=== PATIENT | male | born 1955 | race Caucasian/White ===

== ENCOUNTER 2021-01-12 21:09 | Emergency (ER) | payer OTHER ==
[~2021-01-12 21:09] MED LIST: BACTROBAN NASAL1 GM TOP; METFORMIN HCL500 MG PO; MICRONASE5 MG PO; NORCO 5-325 TA1 EACH PO; ONDANSETRON HCL4 MG PO; PROTONIX 40MG T40 MG PO; TOPROL XL 25MG25 MG PO; VOLTAREN100 GM TOP; ZESTRIL2.5 MG PO
[2021-01-13] MEDS ORDERED: IBUPROFEN800 MG PO (00:39)
[2021-01-13] MEDS ORDERED: PERCOCET 5-3251 EACH PO (00:39)
== END 2021-01-13 01:00 | disposition home or self-care (01) ==
LOC: FER 21:09
DX: S83.91XA Sprain of unspecified site of right knee, initial encounter (principal); E11.9 Type 2 diabetes mellitus without complications; I10 Essential (primary) hypertension; K21.9 Gastro-esophageal reflux disease without esophagitis; Z79.84 Long term (current) use of oral hypoglycemic drugs; Z79.899 Other long term (current) drug therapy; W19.XXXA Unspecified fall, initial encounter; Y92.009 Unspecified place in unspecified non-institutional (private) residence as the place of occurrence of the external cause
CPT/HCPCS: 73564; 96372; J1885

== ENCOUNTER 2021-09-02 08:38 | Emergency (ER) | payer OTHER ==
[~2021-09-02 08:38] MED LIST changes: +IBUPROFEN800 MG PO; +PERCOCET 5-3251 EACH PO
[2021-09-02 10:25] LABS: EOSINOPHIL 1.7 % (0-5); HCT 44.6 % (42.0-52.0); LYMPHOCYTE 17.4 % (15-48); MCH 29.5 pg (25.0-31.0); MCHC 33.6 g/dL (32.0-36.0); MCV 87.6 fL (78.0-100.0); MONOCYTE 10.6 % (0-12); MPV 11.3 fL (6.0-9.5); NRBC 0; PLT 179 K/uL (150-400); RBC 5.09 M/uL (4.70-6.00); RDW 12.4 % (11.5-14.0); WBC 8.9 K/uL (4.0-10.5)
[2021-09-02 10:39] LABS: INR 0.98 (0.9-1.2); PROTHROMBIN TIME 12.4 SECONDS (11.8-13.4); PTT 30.9 SECONDS (24.4-34.7)
[2021-09-02 10:49] LABS: BILIRUBIN - TOTAL 0.3 mg/dL (0.2-1.0); BUN/CREAT RATIO (CALC) 14.8 RATIO; CREATININE 0.81 mg/dL (0.67-1.17); GLOBULIN (CALCULATION) 4.5 g/dL; POTASSIUM 4.3 mmol/L (3.5-5.1); TOTAL PROTEIN 8.5 g/dL (6.4-8.2)
[2021-09-02 11:53] LABS: CORONAVIRUS 2019 SARS-COV-2 NEGATIVE (NEGATIVE); INFLUENZA A NAA NEGATIVE (NEGATIVE)
[2021-09-02] MEDS ORDERED: NEURONTIN100 MG PO (14:11)
== END 2021-09-02 14:40 | disposition home or self-care (01) ==
LOC: FER 08:38
PROVIDERS: Emergency Medicine
DX: I65.21 Occlusion and stenosis of right carotid artery (principal); I16.0 Hypertensive urgency; M54.12 Radiculopathy, cervical region; I10 Essential (primary) hypertension; E11.9 Type 2 diabetes mellitus without complications; Z79.84 Long term (current) use of oral hypoglycemic drugs; Z79.899 Other long term (current) drug therapy; Z20.822 Contact with and (suspected) exposure to COVID-19
CPT/HCPCS: 36415; 70450; 71045; 80053; 80061; 82550; 84484; 85025; 85610; 85730; 93005; J3490; Q9967; U0002

== ENCOUNTER 2021-09-21 14:15 | Emergency (ER) | payer OTHER ==
[~2021-09-21 14:15] MED LIST changes: +NEURONTIN100 MG PO
[2021-09-21 14:55] LABS: BASOPHIL 1.4 % (0-2); HCT 43.3 % (42.0-52.0); HGB 14.8 g/dl (13.2-18.0); MCH 29.3 pg (25.0-31.0); MCHC 34.2 g/dL (32.0-36.0); MCV 85.7 fL (78.0-100.0); MONOCYTE 8.7 % (0-12); MPV 11.4 fL (6.0-9.5); NEUTROPHIL 57.8 % (41-80); NRBC 0; PLT 186 K/uL (150-400); RBC 5.05 M/uL (4.70-6.00); RDW 12.4 % (11.5-14.0); WBC 6.9 K/uL (4.0-10.5)
[2021-09-21 15:07] LABS: BILIRUBIN NEGATIVE (NEGATIVE); BLOOD NEGATIVE Ery/uL (NEGATIVE); CLARITY CLEAR (CLEAR); GLUCOSE (U) 2+ mg/dL (NORMAL); LEUKOCYTES NEGATIVE Leu/uL (NEGATIVE); NITRITE NEGATIVE (NEGATIVE); PROTEIN NEGATIVE (NEGATIVE); UROBILINOGEN 0.2 mg/dL (0.2-1.0); pH 6.5 (5.0-9.0)
[2021-09-21 15:12] LABS: INR 1.03 (0.9-1.2); PROTHROMBIN TIME 12.9 SECONDS (11.8-13.4); PTT 25.2 SECONDS (24.4-34.7)
[2021-09-21 15:13] LABS: ALBUMIN 4.2 g/dL (3.4-5.0); BILIRUBIN - TOTAL 0.3 mg/dL (0.2-1.0); BUN/CREAT RATIO (CALC) 10.7 RATIO; CREATININE 0.75 mg/dL (0.67-1.17); GLOBULIN (CALCULATION) 4.2 g/dL; POTASSIUM 3.8 mmol/L (3.5-5.1); TOTAL PROTEIN 8.4 g/dL (6.4-8.2)
[2021-09-21 15:35] LABS: COLOR STRAW (YELLOW)
[2021-09-21] MEDS ORDERED: NORVASC 10MG TA10 MG PO (21:12)
== END 2021-09-21 21:35 | disposition home or self-care (01) ==
LOC: FER 14:15
PROVIDERS: Emergency Medicine
DX: I10 Essential (primary) hypertension (principal); R07.89 Other chest pain; E11.9 Type 2 diabetes mellitus without complications; Z79.84 Long term (current) use of oral hypoglycemic drugs
CPT/HCPCS: 36415; 71045; 80053; 81003; 84484; 85025; 85610; 85730; 93005; J0360; J3490